=== PATIENT | female | born 1970 | race African-American/Black ===

== ENCOUNTER 2023-03-24 11:59 | Emergency (ER) | payer BC ==
[2023-03-24 12:06] VITALS: BP 128/94; PULSE 107; RESP 16; TEMP 98.2; BMI 29.0
[2023-03-24] MEDS ORDERED: ACETAMINOPHEN 500 MG TABLET (FP) PO ONE (12:39)
[2023-03-24] MEDS ORDERED: IBUPROFEN 600 MG TABLET (FP) PO ONE ×2 (12:39→12:52)
[2023-03-24] MEDS ORDERED: ACETAMINOPHEN 500 MG TABLET (FP) ONE (12:52)
== END 2023-03-24 12:54 | disposition home or self-care (01) ==
LOC: JERFT 11:59
DX: M77.32 Calcaneal spur, left foot (principal)
CPT/HCPCS: 73630-TC-LT; 99283-25